=== PATIENT | female | born 1980 | race Caucasian/White ===

== ENCOUNTER 2019-07-21 00:50 | Emergency (ER) | payer OTHER ==
[2019-07-21 00:59] VITALS: TEMP 98.9
[2019-07-21] MEDS ORDERED: IPRATROPIUM-ALBUTEROL 3 ML NEB INHALATION STA (01:20)
[2019-07-21] MEDS ORDERED: guaiFENesin-DM 600/30MG 1 EACH TAB.ER.12H PO STA (01:20)
[2019-07-21] MEDS ORDERED: predniSONE 50 MG TAB PO STA (01:20)
--- NOTE | 2019-07-21 02:13 | ED ---
URI HPI - General Chief Complaint: Upper Respiratory Infection Stated Complaint: Upper Resp, Diff Breathing Time Seen by Provider: 07/21/19 01:07 Source: patient, family Mode of arrival: ambulatory Limitations: no limitations - History of Present Illness Initial Comments: 39-year-old female patient presents to the emergency department today for evaluation of shortness of breath and wheezing. Patient states she started with upper respiratory symptoms including nasal congestion, sore throat, and cough yesterday. Patient states today she feels short of breath and she has been wheezing. She denies any fever or chills with this. Denies ear pain. States she is coughing up minimal clear sputum. Denies any hemoptysis. States she does smoke one pack of cigarettes per day. States she generally develops wheezing with any cold symptoms. She does not currently have inhalers at home. She denies taking any medication for her symptoms. Patient denies any recent rash, chest pain, abdominal pain, nausea, vomiting, diarrhea, constipation, back pain, numbness, tingling, dizziness, weakness, hematuria, dysuria, urinary urgency, urinary frequency, headache, visual changes, or any other complaints. - Related Data Previous Rx's Medication Instructions Recorded Albuterol Sulfate [Proair Hfa] 1 - 2 puff INHALATION Q6HR PRN #1 07/21/19 inhaler guaiFENesin-DM 600/30MG [Mucinex 1 each PO Q12HR #10 tab.er.12h 07/21/19 Dm] predniSONE 50 mg PO DAILY #5 tablet 07/21/19 Allergies Allergy/AdvReac Type Severity Reaction Status Date / Time Penicillins Allergy Rash/Hives Verified 07/21/19 00:59 Review of Systems ROS Statement: Those systems with pertinent positive or pertinent negative responses have been documented in the HPI. ROS Other: All systems not noted in ROS Statement are negative. Past Medical History Past Medical History: No Reported History History of Any Multi-Drug Resistant Organisms: None Reported Past Surgical History: No Surgical Hx Reported Past Psychological History: Depression Smoking Status: Current every day smoker Past Alcohol Use History: None Reported Past Drug Use History: None Reported General Exam Limitations: no limitations General appearance: alert, in no apparent distress, other (Physical well- developed, well-nourished adult female patient in no acute distress. Vital signs upon presentation are temperature 98.9F, pulse 82, respirations 20, blood pressure 123/85, pulse ox 97% on room air.) Eye exam: Present: normal appearance, PERRL, EOMI. Absent: scleral icterus, conjunctival injection, periorbital swelling ENT exam: Present: mucous membranes moist. Absent: normal exam, normal oropharynx (Pharyngeal erythema), TM's normal bilaterally (Bilateral cerumen impaction) Respiratory exam: Present: wheezes (Bilateral expiratory wheezing in the posterior lung childs). Absent: normal lung sounds bilaterally, respiratory distress, rales, rhonchi, stridor, accessory muscle use Cardiovascular Exam: Present: regular rate, normal rhythm, normal heart sounds. Absent: systolic murmur, diastolic murmur, rubs, gallop, clicks GI/Abdominal exam: Present: soft, normal bowel sounds. Absent: distended, tenderness, guarding, rebound, rigid Neurological exam: Present: alert, oriented X3, CN II-XII intact Psychiatric exam: Present: normal affect, normal mood Skin exam: Present: warm, dry, intact, normal color. Absent: rash Course Vital Signs 07/21/19 07/21/19 07/21/19 00:55 01:45 01:48 Temperature 98.9 F Pulse Rate 82 80 Respiratory 20 20 Rate Blood Pressure 123/85 O2 Sat by Pulse 97 Oximetry 07/21/19 07/21/19 02:02 02:31 Temperature Pulse Rate 80 81 Respiratory 18 Rate Blood Pressure 125/90 O2 Sat by Pulse 98 Oximetry Medical Decision Making - Medical Decision Making 39-year-old female patient presented to the emergency department today for evaluation of upper respiratory symptoms, shortness of breath, and wheezing. Physical examination did reveal diffuse expiratory wheezing in the posterior lung childs. Vital signs are normal with oxygen saturation at 97%. Chest x-ray showed no acute cardiopulmonary process. She was given DuoNeb breathing treatment and 50 mg of prednisone here in the emergency department. Upon reevaluation she does report improvement of symptoms. Lungs are much improved and clear to auscultation. She'll be discharged home with diagnosis of acute bronchitis. She'll be given prescription for steroids and put her inhaler. She be given a prescription for Mucinex DM. She is instructed to follow-up with her primary care physician for recheck in 1-2 days. I did cosmetic counselor regarding smoking cessation for at least 3 minutes. Return parameters were discussed in detail. She verbalizes understanding and agrees with this plan. - Radiology Data Radiology results: report reviewed, image reviewed Two-view x-ray of the chest is obtained. Report was reviewed in its entirety. Impression by Dr. Cordova shows normal chest. Disposition Clinical Impression: Acute asthmatic bronchitis, Viral upper respiratory illness Disposition: HOME SELF-CARE Condition: Good Instructions (If sedation given, give patient instructions): Upper Respiratory Infection (ED), Acute Bronchitis (ED) Additional Instructions: Use medications as directed. Keep inhaler with UL times. Follow-up with your primary care physician for recheck in 1-2 days. Return to the emergency department immediately for any new, worsening, or concerning symptoms. Prescriptions: guaiFENesin-DM 600/30MG [Mucinex Dm] 1 each PO Q12HR #10 tab.er.12h predniSONE 50 mg PO DAILY #5 tablet Albuterol Sulfate [Proair Hfa] 1 - 2 puff INHALATION Q6HR PRN #1 inhaler PRN Reason: Shortness Of Breath Is patient prescribed a controlled substance at d/c from ED?: No Referrals: None,Stated [Primary Care Provider] - 1-2 days Time of Disposition: 02:30
--- NOTE | 2019-07-21 02:25 | XR ---
EXAMINATION TYPE: XR chest 2V DATE OF EXAM: 07/21/2019 COMPARISON: NONE HISTORY: Cough TECHNIQUE: Frontal and lateral views of the chest are obtained. FINDINGS: Heart and mediastinum are normal. Lungs are clear. Diaphragm is normal. Bony thorax appear s normal. IMPRESSION: Normal chest.
[2019-07-21 02:32] VITALS: BP 125/90; PULSE 81; RESP 18
== END 2019-07-21 02:35 | disposition home or self-care (01) ==
LOC: EC 00:50
DX: J45.909 Unspecified asthma, uncomplicated (principal); J06.9 Acute upper respiratory infection, unspecified; H61.23 Impacted cerumen, bilateral; F17.210 Nicotine dependence, cigarettes, uncomplicated; Z88.0 Allergy status to penicillin
CPT/HCPCS: 94640; 71046; 99285; J7512